=== PATIENT | male | born 1955 | race Caucasian/White ===

== ENCOUNTER 2017-03-04 16:58 | Observation (INO) | payer MEDICARE ==
[~2017-03-04] VITALS: Ht 172.7 cm; Wt 112.7 kg
--- NOTE | ~2017-03-04 | HEMODYNAMI ---
PATIENT:JYOTI DILL MEDICAL RECORD: [id number] : 57 LOCATION:[facility] D.2119 [facility] [id number] ADMISSION DATE: 03/04/17 Generatedon:03/05/201714:17 Patient name: JYOTI DILL Patient #: [id number] : 1955 Date of study: 03/05/2017 Page: Of Hemodynamic Procedure Report Patient Data Patient Demographics Procedure consent was obtained First Name: JYOTI Gender: Male Last Name: ANIYAH : 1955 [facility] Initial: Mateo Age: 61 year(s) Patient #: [id number] Race: SSN: [id number] Additional ID: [id number] Contact details [address]: [address] [place] [address] State: [place] City: [place] Zip code: [address] Past Medical History Allergies Allergen Reaction Date Comments Reported Other allergy 06/11/2016 metoprolol Other allergy 06/12/2016 metoprolol Other allergy 03/05/2017 Motoprolol, Novacaine Admission Admission Data Admission Date: 03/04/2017 Admission Time: 16:58 Room #: D.2119 Lab Results Lab Result Date: 03/05/2017 Lab Result Time: 0:00 Biochemistry Name Units Result Min Max Creatinine mg/dl 1.1 --(--*-)-- 0.6 1.3 CBC Name Units Result Min Max Hemoglobin g/dl 15.2 --(-*--)-- 13.5 17.5 Procedure Procedure Types Cath Procedure Diagnostic Procedure LHC LHC w/Coronaries PCI Procedure Coronary Stent Initial x2 Miscellaneous Procedures Moderate Sedation up to 30 minutes Procedure Description Procedure Date Procedure Date: 03/05/2017 Procedure Start Time: 13:49 Procedure End Time: 14:16 Procedure Staff Name Function Todd Redmond MD Performing Physician Adrianna Ohara RT Scrub Angela Morris RN Nurse Erika Acevedo RT Monitor Domenic Tan RT Meat Stocker Jarrett Negro RT Monitor Procedure Data Cath Procedure Fluoroscopy Diagnostic fluoroscopy Total fluoroscopy Time: 7.4 time: 7.4 min min Diagnostic fluoroscopy Total fluoroscopy dose: 929 dose: 929 mGy mGy Contrast Material Contrast Material Type Amount (ml) Isovue 300 103 Entry Location Entry Primary Successful Side Size Upsize Upsize Entry Closure Sood ccessful Closure Location (Fr) 1 (Fr) 2 (Fr) Remarks Device Remarks Radial Right 6 Fr Mechanical artery Short Compression Estimated blood loss: 10 ml Diagnostic catheters Device Type Used For End Catheter Placement Terumo 5Fr Nolberto 110cm LV Angiography catheter Terumo 5Fr Nolberto 110cm Left Coronary catheter Angiography Terumo 5Fr Nolberto 110cm Right Coronary catheter Angiography Procedure Complications No complications Procedure Medications Medication Administration Route Dosage Oxygen NC 2 l/min Lidocaine 2% added to field 20 Heparin Flush Bag added to field 2 bags (1000units/500ml NS) 0.9% NaCl I.V. 100 ml/hr Versed I.V. 1 mg Fentanyl I.V. 50 mcg Versed I.V. 1 mg Fentanyl I.V. 50 mcg Radial Cocktail I.A. 1 syringe (Verapomil 2mg/Nitro 400mcg/Heparin 1500units) Fentanyl I.V. 50 mcg Heparin Bolus I.V. 4000 units Fentanyl I.V. 50 mcg Hemodynamics Rest HGB: 15.2 (g/dl) Heart Rate: 54 (bpm) Snapshots Pre Cath Intra NCS Post Cath Vital Signs Time Heart Resp SPO2 etCO2 [id number] NIBP (mmHg) Rhythm Pain Sedation Rate (ipm) (%) (mmHg) (mmHg) Status Level (bpm) 13:26:46 54 21 98 0 0 171/94(113) NSR 0 (11) 10(A) , No pain 13:31:02 53 20 99 0 0 158/95(114) NSR 0 (11) 10(A) , No pain 13:35:14 48 19 98 0 0 155/92(104) NSR 0 (11) 10(A) , No pain 13:39:22 54 19 98 0 0 145/95(109) NSR 0 (11) 10(A) , No pain 13:43:34 50 18 98 0 0 148/87(106) NSR 0 (11) 10(A) , No pain 13:47:44 55 17 98 0 0 152/90(114) NSR 0 (11) 9(A) , No pain 13:52:00 64 16 99 0 0 130/81(98) NSR 0 (11) 9(A) , No pain 13:56:10 60 14 95 0 0 138/79(100) NSR 0 (11) 9(A) , No pain 14:00:24 59 16 97 0 0 137/79(106) NSR 0 (11) 9(A) , No pain 14:04:36 62 13 97 0 0 140/81(98) NSR 0 (11) 9(A) , No pain 14:08:48 62 15 98 0 0 132/83(106) NSR 0 (11) 10(A) , No pain 14:12:57 66 16 97 0 0 142/82(118) NSR 0 (11) 10(A) , No pain Medications Time Medication Route Dose Verified Delivered Reason Note s Effectiveness by by 13:31:51 Oxygen NC 2 l/min Todd Buffie used for Nyla Morris RN procedure 13:31:58 Lidocaine 2% added 20ml Todd Buffie used for to vial Nyla Morris RN procedure field 13:32:39 Heparin Flush added 2 bags Todd Brooks used for Bag to Nyla Redmond MD procedure (1000units/500ml field NS) 13:32:49 0.9% NaCl I.V. 100 Todd Buffie Per physician ml/hr Nyla Morris RN 13:44:41 Versed I.V. 1 mg Todd Miller for sedation Nyla Morris RN 13:44:48 Fentanyl I.V. 50 mcg Todd Miller for sedation Nyla Morris RN 13:50:08 Versed I.V. 1 mg Todd Manzanoie for sedation Nyla Morris RN 13:50:12 Fentanyl I.V. 50 mcg Todd Miller for sedation Nyla Morris RN 13:51:49 Radial Cocktail I.A. 1 Todd Brooks for (Verapomil syringe Nyla Redmond MD vasodilation 2mg/Nitro 400mcg/Heparin 1500units) 13:54:14 Fentanyl I.V. 50 mcg Todd Brooks for sedation Nyla Redmond MD 13:55:28 Heparin Bolus I.V. 4000 Todd Miller for veri fied units Tauth MD Morris RN anticoagulation with dr redmond 14:02:28 Fentanyl I.V. 50 mcg Todd Miller for sedation Nyla Morris solar panel installer Log Time Note 13:05:42 Domenic Tan RT(R) sent for patient. Start room use. 13:05:42 Time tracking: Regular hours 13:05:46 Plan of Care:Hemodynamics will remain stable., Cardiac rhythm will remain stable., Comfort level will be maintained., Respiratory function will remain adequate., Patient/ family verbilizes understanding of procedure., Procedure tolerated without complication., Recovers from procedure without complications.. 13:15:50 Patient received from Med II to CCL 1 Alert and oriented. Tansferred to table in Supine position. 13:15:51 Warm blankets applied, and kimberly hugger turned on for patient comfort. 13:15:52 Correct patient and procedure confirmed by team. 13:15:54 Signed procedure consent form obtained from patient. 13:15:55 ECG and BP/O2 sat monitors applied to patient. 13:16:17 Pre-procedure instructions explained to patient. 13:16:18 Pre-op teaching completed and patient verbalized understanding. 13:16:25 Family in patients room. 13:16:27 Patient NPO since Midnight. 13:25:35 Vital chart was stopped 13:25:39 Vital chart was started 13:27:23 Baseline sample Acquired. 13:27:28 Rhythm: sinus bradycardia 13:27:29 Full Disclosure recording started 13:27:35 H&P Date Dictated: 03/05/2017 Within 30 days and on chart.. 13:28:00 Patient allergic to Other allergyMotoprolol, Novacaine 13:28:03 Is the patient allergic to Iodine/contrast media? No. 13:28:40 Is patient on blood thinner?Yes 13:28:43 ACC The patient was administered the following blood thiners within the last 24 hours: ACCAspirin, ACCPlavix 13:29:00 Patient diabetic? No. 13:29:04 Previous problem with sedation/anesthesia? No ? 13:29:06 Snore? Yes 13:29:07 Sleep apnea? No 13:29:08 Deviated septum? No 13:29:09 Opens mouth fully? Yes 13:29:10 Sticks out tongue? Yes 13:29:12 Airway obstruction? No ? 13:29:15 Dentures? No ? 13:29:19 Pre procedure: right dorsailis pedis pulse 2+ Normal; easily identifiable; not easily obliterated 13:29:20 Modified Gavin's test Ulnar < 7 seconds 13:29:23 Patient pain scale 0/10 ?. 13:29:41 IV patent on arrival in left antecubital with 0.9% NaCl at [facility]. 13:30:15 Lab Result : Hemoglobin 15.2 g/dl 13:30:15 Lab Result : Creatinine 1.1 mg/dl 13:30:19 Lab results completed and on chart. 13:30:23 Right Radial & Right Groin area was prepped with chlora-prep and draped in sterile fashion 13:30:24 Alarms reviewed by R. N. 13:30:24 Sharps counted by scrub and verified by R.N. 13:30:28 Use device set Radial Dx 13:30:29 Acist Syringe opened to sterile field. 13:30:29 Medline Cath Pack opened to sterile field. 13:30:30 Bag Decanter opened to sterile field. 13:30:30 Terumo 6Fr Slender Glidesheath opened to sterile field. 13:30:31 St Abner 260cm J .035 wire opened to sterile field. 13:30:31 Acist Hand Control opened to sterile field. 13:30:31 Acist Manifold opened to sterile field. 13:30:32 Tegaderm 4 x 4 opened to sterile field. 13:30:33 MBrace Wrist Support opened to sterile field. 13:31:51 Oxygen 2 l/min NC was administered by Angela Morris RN; used for procedure; 13:31:58 Lidocaine 2% 20ml vial added to field was administered by Angela Morris RN; used for procedure; 13:32:39 Heparin Flush Bag (1000units/500ml NS) 2 bags added to field was administered by Todd Redmond MD; used for procedure; 13:32:49 0.9% NaCl 100 ml/hr I.V. was administered by Angela Morris RN; Per physician; 13:41:15 Final Timeout: patient, procedure, and site verified with staff and physician. All members of the team are in agreement. 13:41:21 Right Radial site verified by team. 13:41:23 Physical assessment completed. ASA score P 2 - A patient with mild systemic disease as per Todd Redmond MD. 13:41:27 Sedation plan: IV Moderate Sedation Versed, Fentanyl 13:44:41 Versed 1 mg I.V. was administered by Angela Morris RN; for sedation; 13:44:48 Fentanyl 50 mcg I.V. was administered by Angela Morris RN; for sedation; 13:49:52 Procedure started. 13:49:56 Local anesthetic to right radial artery with Lidocaine 2% by Todd Redmond MD.INITIAL ACCESS ONLY 13:50:05 A 6 Fr Short sheath was inserted into the Right Radial artery 13:50:08 Versed 1 mg I.V. was administered by Angela Morris RN; for sedation; 13:50:12 Fentanyl 50 mcg I.V. was administered by Angela Morris RN; for sedation; 13:51:47 A Terumo 5Fr Nolberto 110cm catheter was advanced over the wire and used for LV Angiography. 13:51:49 Radial Cocktail (Verapomil 2mg/Nitro 400mcg/Heparin 1500units) 1 syringe I.A. was administered by Todd Redmond MD; for vasodilation; 13:52:25 LV gram done using ESPINOZA 13:52:29 Injector settings: Ml/sec: 5, Volume: 15, 13:52:38 EF : 40 % 13:52:47 A Terumo 5Fr Nolberto 110cm catheter was advanced over the wire and used for Left Coronary Angiography. 13:53:41 A Terumo 5Fr Nolberto 110cm catheter was advanced over the wire and used for Right Coronary Angiography. 13:54:13 Catheter removed. 13:54:14 Fentanyl 50 mcg I.V. was administered by Todd Redmond MD; for sedation; 13:54:42 Cordis 6FR XBLAD 3.5 guide catheter opened to sterile field. 13:55:28 Heparin Bolus 4000 units I.V. was administered by Angela Morris RN; for anticoagulation; verified with dr redmond 13:56:15 6 Fr XBLAD 3.5 guide catheter was inserted over the wire 13:58:22 Whisper wire advanced. 13:59:47 The Promus Premier OTW 3.0 x 8 stent was advanced then removed because of failure to cross lesion 14:00:26 Merit BasixCompak Inflation Kit opened to sterile field. 14:00:44 Tapia Whisper J 300cm 0.014 guide wire opened to sterile field. 14:01:30 Erika Acevedo RT(R) was relieved by Jarrett Negro RT(R) as monitoring person 14:01:38 Inflation number: 1 A Euphora 2.5 x 15 Balloon was prepped and advanced across the Prox CX, then inflated to 17 CLARENCE for 0:10 (min:sec). 14:01:53 Balloon removed over the wire. 14:02:28 Fentanyl 50 mcg I.V. was administered by Angela Morris RN; for sedation; 14:03:16 Inflation Number: 2 A Promus Premier OTW 3.0 x 8 stent was prepped and advanced across the Prox CX. The stent was deployed at 21 CLARENCE for 0:10 (min:sec). 14:03:41 Wire redirected to LAD. 14:03:48 Stent catheter was removed intact over wire. 14:04:20 Wire advanced across lesion. 14:07:47 Inflation Number: 1 A Promus Premier OTW 3.5 x 32 stent was prepped and advanced across the Mid LAD. The stent was deployed at 13 CLARENCE for 0:10 (min:sec). 14:08:36 Stent catheter was removed intact over wire. 14:08:37 Wire removed. 14:08:38 Guide catheter removed. 14:08:58 Terumo TR Band Standard opened to sterile field. 14:10:57 Sheath removed intact; hemostasis achieved with Mechanical Compression to the Right Radial artery. 14:10:59 Procedure ended.(Physican Out) 14:11:38 Fluoroscopy time 07.40 minutes. 14:11:42 Fluoroscopy dose: 929 mGy 14:11:42 Flurop Dose total: 929 14:12:06 Contrast amount:Isovue 300 103ml. 14:12:08 Sharps counted by scrub and verified by R.N. 14:12:11 TR band inflated with 10cc of air. 14:12:13 Insertion/operative site no bleeding no hematoma. 14:12:21 Post right radial artery:stable, soft, clean and dry 14:12:24 Post Procedure Pulses reassessed and unchanged 14:12:27 Post-procedure physical assessment completed. ASA score P 2 - A patient with mild systemic disease as per Todd Redmond MD. 14:12:29 Post procedure rhythm: unchanged. 14:12:32 Estimated blood loss: 10 ml 14:12:33 Post procedure instruction explained to patient.Patient verbalizes understanding. 14:12:33 Patient needs reinforcement of post procedure teaching. 14:13:01 Procedure type changed to Cath procedure, Diagnostic procedure, LHC, LHC w/Coronaries, PCI procedure, Coronary Stent Initial x2, Miscellaneous Procedures, Moderate Sedation up to 30 minutes 14:16:25 Procedure Complication : No complications 14:16:28 See physician's report for complete and final results. 14:16:32 Report given to PCU. 14:16:35 Patient transfered to PCU with Stretcher. 14:16:38 Procedure ended. 14:16:38 Full Disclosure recording stopped 14:16:52 End room use (Document Last) 14:17:19 Vital chart was stopped Intervention Summary Intervention Notes Time ActionType Lesion and Equipment Action# Pressure Duration Attributes Used 13:59:47 Discard Promus Stent Premier OTW 3.0 x 8 stent 14:01:38 Inflate Prox CX Euphora 1 17 00:10 balloon 2.5 x 15 Balloon 14:03:16 Place stent Prox CX Promus 2 21 00:10 Premier OTW 3.0 x 8 stent 14:07:47 Place stent Mid LAD Promus 1 13 00:10 Premier OTW 3.5 x 32 stent Device Usage Item Name Manufacture Quantity Catalog Number Hospital Part Current Mini mal Lot# / Charge Number Stock Stock Serial# Code Acist Acist 1 16769 410903 229288 [id number] 20 Syringe Medical Systems Inc Medline Cardinal 1 [id number] 42866 991309 5 Cath Pack Health Bag Microtek 1 2001S 529073 85229 494331 5 DecGeenapp Inc. Terumo 6Fr Terumo 1 [id number] 860356 923006 868663 [address] Ab[address] St Abner 1 [id number] 648208 280123 917088 30 260cm J .035 wire Acist Hand Acist 1 57789 839695 500449 934340 5 Control Medical Systems Inc Acist Acist 1 17341 441568 755146 499984 5 Manifold Medical Systems Inc Tegaderm 4 3M 1 1626W 931136 846017 194431 5 x 4 MBrace Advanced 1 140-0250-00 750417 07923 037913 5 Wrist Vascular Support Dynamics Terumo 5Fr Terumo 1 40-3613 329748 928227 814810 5 Nolberto 110cm catheter Cordis 6FR Cardinal 1 [id number] 131617 720725 061517 10 XBLAD 3.5 Health guide catheter Promus [place] 1 [id number] 654502 559373 5 [id number] Premier OTW Scientific 3.0 x 8 stent Euphora 2.5 Medtronic 1 [id number] 804091 686082 050395 5 [id number] x 15 Balloon Promus [place] 1 [id number] 854426 921391 5 [id number] Premier OTW Scientific 3.5 x 32 stent Terumo TR Terumo 1 [id number] 730732 686983 748314 40 Band Standard Merit Merit 1 [id number] 231013 226682 423063 15 BasixCompak Medical Inflation Kit Tapia Tapia 1 [id number] 499576 987607 878833 5 Whisper J Vascular 300cm 0.014 guide wire Signature Audit [place] Stage Time Signature Unsigned Intra-Procedure 03/05/2017 Jarrett Negro 2:17:16 PM RT(R) Signatures Monitor : Erika Signature : Counts RT Date : Time : Monitor : Jarrett Negro RT Signature : Date : Time : [facility] [address] [place] [address]
--- NOTE | ~2017-03-04 | OP ---
PATIENT NAME: JYOTI DILL MEDICAL RECORD: [id number] :57 LOCATION:D.M2 D.2119 ADMISSION DATE:03/04/17 SURGEON: DOLLY MARQUIS MD DATE OF OPERATION: 03/05/2017 PROCEDURES: 1. PTCA stent LAD. 2. PTCA stent left circumflex. 3. Left heart catheterization. 4. Selective coronary angiography. 5. Left ventriculogram. PROCEDURE PERFORMED: After informed consent was obtained and after detailed explanation of risks, benefits as well as alternative therapies, the patient elected to proceed with angiogram and angioplasty. The right radial area was prepped and draped in normal sterile fashion. Right radial artery was cannulated via modified Seldinger technique with placement of 6-[place] sheath. All catheters exchanged through the sheath. At the end of the case all catheters were removed. FINDINGS: Left ventriculogram was performed in standard 30-degree ESPINOZA view reveals preserved cardiac wall motion, ejection fraction 50%. SELECTIVE CORONARY ANGIOGRAPHY: 1. Left main showed no significant angiographic disease. 2. Left anterior descending has previously placed stents proximally. These have a 90% in-stent restenosis. 3. Left circumflex has previously placed stents. Obtuse marginal was patent; however, the circumflex itself has 90% in-stent restenosis. 4. The right coronary has previously placed stents. These are widely patent with no significant restenosis. No disease elsewise throughout the RCA or its branches. PTCA STENT OF THE LAD AND CIRCUMFLEX: The LAD was addressed with a 3.5 x 32 mm Promus stent and the left circumflex with a 3.0 x 9 mm Promus stent. Result was 0% residual stenosis. OVERALL IMPRESSION: Successful percutaneous transluminal coronary angioplasty stent of the left anterior descending and circumflex, both going from 90% initial stenosis to 0% residual stenosis. TRANSINT:[id number] Voice Confirmation ID: [id number] DOCUMENT ID: [id number] DOLLY MARQUIS MD CC: [id number] DICTATION DATE: 03/05/17 1414 TELEPHONE ORDER CLERK: 03/05/17 1806 DIS IN 03/05/17 [facility] [address] [place] [id number]
[~2017-03-04 16:58] MED LIST: ASPIRIN325 MG PO; GEMFIBROZIL600 MG PO; NITROSTAT0.4 MG SL; PLAVIX75 MG PO
[2017-03-04 19:06] VITALS: BP 151/86; Ht 172.7 cm; Wt 112.7 kg
[2017-03-04 19:45] LABS: BASOPHILS 0.1 % (0-2); EOSINOPHILS 2.8 % (0-7); HEMOGLOBIN 15.2 g/dL (13.5-17.5); IMMATURE GRANULOCYTES 0.3 % (0-5); LYMPHOCYTES 30.2 % (15-50); MCH 30.6 pg (26.0-34.0); MCHC 35.3 g/dL (31.0-37.0); MCV 86.7 fL (80.0-100.0); MEAN PLATELET VOLUME 10.9 fL (7.4-10.4); MONOCYTES 6.4 % (2-11); NEUTROPHILS 60.2 % (40-80); PLATELET COUNT 165 10x3/uL (130-400); RBC 4.96 10x6/uL (4.20-6.10); RDW 12.8 % (11.5-14.5); WBC 7.9 10x3/uL (4.8-10.8)
[2017-03-04 20:14] LABS: ANION GAP 11.1 mmol/L (8-16); CALCIUM 8.1 mg/dL (8.5-10.1); CARBON DIOXIDE 26.5 mmol/L (21.0-32.0); CREATININE - SERUM 1.1 mg/dL (0.6-1.3); POTASSIUM - SERUM 3.6 mmol/L (3.5-5.1)
--- NOTE | 2017-03-05 00:08 | NUR ---
PT RESTING WELL WITHOUT C/O OR DISTRESS NOTED. NO CHANGES NOTED IN ASSESSMENT. VSS, AFEBRILE. WILL CONT TO MONITOR.
[2017-03-05 04:00] VITALS: BP 139/68
--- NOTE | 2017-03-05 07:30 | NUR ---
RESTING QUIETLY AAOX4 RESP UNLABORED NAD NOTED
[2017-03-05 08:00] VITALS: BP 124/81
[2017-03-05 12:00] VITALS: BP 132/78
[2017-03-05 16:00] VITALS: BP 125/75
--- NOTE | 2017-03-05 18:26 | NUR ---
REVIEWED DISCHARGE INSTRUCTIONS WITH PT AND BOTH STATE UNDERSTANDING COPY GIVEN DCD SALINE LOCK TO LAC WITH IV CATH INTACT SITE FREE OF REDNESS OR EDEMA DISCHARGED HOME LEFT VIA W/C IN STABLE CONDITION WITH ALL PERSONAL BELONGINGS
== END 2017-03-05 18:26 | disposition home or self-care (01) ==
LOC: D.M2 16:58 → OBSVTIME 17:00 → D.M2 03-05 18:26
PROVIDERS: ADMIT Internal Medicine Interventional Cardiology
DX: T82.855A Stenosis of coronary artery stent, initial encounter (principal); Y83.8 Other surgical procedures as the cause of abnormal reaction of the patient, or of later complication, without mention of misadventure at the time of the procedure; I25.10 Atherosclerotic heart disease of native coronary artery without angina pectoris
CPT/HCPCS: 93458; C9600 ×2

== ENCOUNTER 2017-03-23 13:25 | Observation (INO) | payer MEDICARE ==
[2017-03-04 19:06] VITALS: Ht 172.7 cm; Wt 113.4 kg
[~2017-03-23] VITALS: Ht 172.7 cm; Wt 113.4 kg
[2017-03-23] MEDS ORDERED: FISH OIL 1,0001 CA1 PO (19:38)
[2017-03-24 08:52] VITALS: BP 148/81
== END 2017-03-24 16:05 ==
LOC: D.ER 13:25 → D.M2 16:04 → OBSVTIME 16:04 → D.M2 16:04
PROVIDERS: ADMIT Internal Medicine Interventional Cardiology
DX: I21.4 Non-ST elevation (NSTEMI) myocardial infarction (principal); I25.110 Atherosclerotic heart disease of native coronary artery with unstable angina pectoris; Z95.5 Presence of coronary angioplasty implant and graft; I10 Essential (primary) hypertension; E78.5 Hyperlipidemia, unspecified; Z72.0 Tobacco use
CPT/HCPCS: 93458; C9600; C9601

== ENCOUNTER 2018-09-10 12:59 | Observation (INO) | payer MEDICARE ==
[~2018-09-10] VITALS: Ht 172.7 cm; Wt 128.3 kg
--- NOTE | ~2018-09-10 | DS ---
PATIENT:JYOTI MOCK :57 MEDICAL RECORD: [id number] DISCHARGE SUMMARY ADMISSION DATE: 09/10/18 DISCHARGE DATE: 09/12/18 DISCHARGE DATE: 09/12/2018. DISCHARGE DIAGNOSES: 1. Unstable angina. 2. PTCA stent LAD, PTCA left circumflex this admission. 3. Hypertension. 4. Hyperlipidemia. 5. Coronary artery disease. HOSPITAL COURSE: presents with unstable anginal symptomatology, found to have disease of the LAD and circumflex, underwent successful PTCA stent of the LAD and PTCA of the in-stent restenosis of the circumflex, discharged home to continue his current medications as he is already on aspirin and Plavix. Follow up with [facility] in 1 month. TRANSINT:[id number] Voice Confirmation ID: [id number] DOCUMENT ID: [id number] DOLLY MARQUIS MD CC: [id number] DICTATION DATE: 09/12/18 1030 LEG ASSEMBLER: 09/13/18 0143 DIS IN 09/12/18 [place] [id number] [place] [id number]
--- NOTE | ~2018-09-10 | OP ---
PATIENT NAME: JYOTI DILL MEDICAL RECORD: [id number] :57 [facility]ATION[facility] ADMISSION DATE:09/10/18 SURGEON: DOLLY MARQUIS MD DATE OF OPERATION: 09/12/2018 PROCEDURES: 1. PTCA stent LAD. 2. PTCA left circumflex. 3. Left heart catheterization. 4. Selective coronary angiography. 5. Left ventriculogram. INDICATION: Unstable angina and coronary artery disease. PROCEDURE IN DETAIL: After informed consent was obtained and after a detailed description of the risks, benefits as well as alternative therapies, the patient elected to proceed with angiogram and angioplasty. The right radial area was prepped and draped in normal sterile fashion. Right radial artery was cannulated via modified Seldinger technique with placement of 6-[place] sheath. All catheters exchanged through this sheath. FINDINGS: The left ventriculogram was performed in standard 30-degree ESPINOZA view reveals preserved cardiac wall motion, ejection fraction 50%. SELECTIVE CORONARY ANGIOGRAPHY: 1. Left main is with no significant angiographic disease. 2. Left anterior descending has previously placed stents proximally, these are widely patent with no significant restenosis. There is a 75% stenosis in the mid vessel. 3. Left circumflex has previously placed stents. There is 90% in-stent restenosis. 4. Right coronary artery has moderate irregularities, but no flow-limiting stenosis. Previously placed stents in the right coronary artery are widely patent. PTCA STENT OF THE LEFT ANTERIOR DESCENDING: The stent used 2.5 x 15 mm [place]. Result was 0% residual stenosis. The in-stent restenosis of the circumflex was addressed with a 3.5 balloon taken to 19 atmospheres. Result was 0% residual stenosis. OVERALL IMPRESSION: Successful percutaneous transluminal coronary angioplasty stent of the left anterior descending and high pressure percutaneous transluminal coronary angioplasty of the left circumflex, both going from 75% to 90% initial stenosis to 0% residual. TRANSINT:[id number] Voice Confirmation ID: [id number] DOCUMENT ID: [id number] OPERATIVE REPORT [id number] JYOTI DILL JEFFREY MD CC: [id number] DICTATION DATE: 09/12/18 1032 CADMIUM PLATER: 09/12/18 1145 ADM IN [address] [address] [id number] [place] [address]
--- NOTE | ~2018-09-10 | HEMODYNAMI ---
PATIENT:JYOTI DILL MEDICAL RECORD: [id number] : 57 LOCATION:[facility] D.2119 ADMISSION DATE: 09/10/18 Generatedon:09/12/201810:35 Patient name: JYOTI DILL Patient #: [id number] : 1955 Date of study: 09/12/2018 Page: Of Hemodynamic Procedure Report Patient Data Patient Demographics Procedure consent was obtained First Name: JYOTI Gender: Male Last Name: ANIYAH : 1955 [facility] Initial: Mateo Age: 63 year(s) Patient #: [id number] Race: SSN: [id number] Additional ID: [id number] Contact details [address]: [address] [place] [address] State: [place] City: [place] Zip code: [address] Past Medical History Allergies Allergen Reaction Date Comments Reported Other 06/11/2016 metoprolol allergy Other 06/12/2016 metoprolol allergy Other 03/05/2017 Motoprolol, Novacaine allergy Other 03/24/2017 metoprolol, Procaine, allergy Novacaine Other 09/12/2018 Novacaine,metoprolol,procaine allergy Admission Admission Data Admission Date: 09/10/2018 Admission Time: 14:52 Room #: D.2119 Lab Results Lab Result Date: 09/12/2018 Lab Result Time: 0:00 Biochemistry Name Units Result Min Max BUN mg/dl 12 --(-*--)-- 7 18 Creatinine mg/dl 1.1 --(--*-)-- 0.6 1.3 Procedure Procedure Types Cath Procedure Diagnostic Procedure [facility] w/Coronaries Sedation Charges Moderate Sedation up to 30 minutes PCI Procedure Coronary Stent Coronary Stent Initial PTCA PTCA Initial Procedure Description Procedure Date Procedure Date: 09/12/2018 Procedure Start Time: 10:07 Procedure End Time: 10:33 Procedure Staff Name Function Todd Redmond MD Performing Physician Jarrett Negro RT Monitor Angela Morris RN Nurse Erika Acevedo RT Scrub Procedure Data Cath Procedure Fluoroscopy Diagnostic fluoroscopy Total fluoroscopy Time: 9.6 time: 9.6 min min Diagnostic fluoroscopy Total fluoroscopy dose: dose: 1699 mGy 1699 mGy Contrast Material Contrast Material Type Amount (ml) Isovue 300 123 Entry Location Entry Primary Successful Side Size Upsize Upsize Entry Closure Sood ccessful Closure Location (Fr) 1 (Fr) 2 (Fr) Remarks Device Remarks Radial Right 6 Fr Mechanical artery Short Compression Estimated blood loss: 10 ml Diagnostic catheters Device Type Used For End Catheter Placement DIAGNOSTIC [place] 110cm 5 Procedure Fr catheter ([id number]) Procedure Complications No complications Procedure Medications Medication Administration Route Dosage Oxygen etCO2 Nasal cannula 2 l/min Lidocaine 2% added to field 20 Heparin Flush Bag added to field 2 bags (1000units/500ml NS) 0.9% NaCl I.V. 100 ml/hr Radial Cocktail I.A. 1 syringe (Verapomil 2mg/Nitro 400mcg/Heparin 1500units) Versed I.V. 1 mg Fentanyl I.V. 50 mcg Versed I.V. 1 mg Fentanyl I.V. 50 mcg Fentanyl I.V. 50 mcg Heparin Bolus I.V. 4000 units Fentanyl I.V. 50 mcg Versed I.V. 1 mg Hemodynamics Rest Heart Rate: 56 (bpm) Pressure Samples Time Site Value (mmHg) Purpose Heart Use Rate(bpm) 10:09 LV 281/64,38 Snapshot 67 Snapshots Pre Cath Intra NCS Post Cath Vital Signs Time Heart Resp SPO2 etCO2 NIBP (mmHg) Rhythm Pain Sedation Rate (ipm) (%) (mmHg) Status Level (bpm) 9:50:57 57 18 96 0 167/97(116) NSR 0 (11) 10(A) , No pain 9:55:11 55 32 98 20.4 159/93(127) NSR 0 (11) 10(A) , No pain 9:59:21 55 19 96 21.1 149/102(120) NSR 0 (11) 10(A) , No pain 10:03:29 61 16 97 21.9 150/98(118) NSR 0 (11) 10(A) , No pain 10:07:37 60 14 96 36.2 141/93(118) NSR 0 (11) 9(A) , No pain 10:11:40 71 14 94 24.2 159/95(122) NSR 0 (11) 9(A) , No pain 10:15:54 68 12 95 26.5 145/87(116) NSR 0 (11) 9(A) , No pain 10:20:02 62 12 95 37.1 145/86(118) NSR 0 (11) 9(A) , No pain 10:24:10 68 13 95 37.8 142/92(120) NSR 0 (11) 9(A) , No pain 10:28:14 68 13 95 37.8 158/99(120) NSR 0 (11) 10(A) , No pain 10:32:26 61 15 95 34.8 144/88(115) NSR 0 (11) 9(A) , No pain Medications Time Medication Route Dose Verified Delivered Reason Not es Effectiveness by by 9:55:13 Oxygen etCO2 2 l/min Todd Miller used for Nasal Nyla Morris RN procedure cannula 9:55:20 Lidocaine 2% added 20ml Todd Brooks for local pt get to vial Nyla Redmond MD anesthetic nauseated field when used with dental procedures only 9:55:25 Heparin Flush added 2 bags Todd Brooks used for Bag to Nyla Redmond MD procedure (1000units/500ml field NS) 9:55:32 0.9% NaCl I.V. 100 Todd Miller Per physician ml/hr Nyla Morris RN 9:55:40 Radial Cocktail I.A. 1 Todd Brooks for (Verapomil syringe Nyla Redmond MD vasodilation 2mg/Nitro 400mcg/Heparin 1500units) 10:00:18 Versed I.V. 1 mg Todd Buffie for sedation Nyla Morris RN 10:00:25 Fentanyl I.V. 50 mcg Todd Buffie for sedation Nyla Morris RN 10:04:04 Versed I.V. 1 mg Todd Buffie for sedation Nyla Morris RN 10:04:08 Fentanyl I.V. 50 mcg Todd Buffie for sedation Nyla Morris RN 10:08:08 Fentanyl I.V. 50 mcg Todd Buffie for sedation Nyla Morris RN 10:13:48 Heparin Bolus I.V. 4000 Todd Buffie for yovani ified units Nyla Morris RN anticoagulation with dr redmond 10:22:16 Fentanyl I.V. 50 mcg Todd Miller for sedation Nyla Morris RN 10:23:25 Versed I.V. 1 mg Todd Miller for sedation Nyla Morris RN Procedure Log Time Note 9:38:51 Diagnostic Cath status Elective 9:38:52 Angela Morris RN sent for patient. Start room use. 9:39:05 Time tracking: Regular hours (M-F 7:00 - 5:00) 9:39:09 Plan of Care:Hemodynamics will remain stable., Cardiac rhythm will remain stable., Comfort level will be maintained., Respiratory function will remain adequate., Patient/ family verbilizes understanding of procedure., Procedure tolerated without complication., Recovers from procedure without complications.. 9:39:25 H&P Date Dictated: 09/10/2018 Within 30 days and on chart.. 9:42:27 Lab Result : Creatinine 1.1 mg/dl 9:42:27 Lab Result : BUN 12 mg/dl 9:42:36 Patient received from Med II to CCL 1 Alert and oriented. Tansferred to table in Supine position. 9:42:37 Warm blankets applied, and kimberly hugger turned on for patient comfort. 9:42:37 Correct patient and procedure confirmed by team. 9:42:39 Signed procedure consent form obtained from patient. 9:42:40 ECG and BP/O2 sat monitors applied to patient. 9:42:41 Pre-procedure instructions explained to patient. 9:42:42 Pre-op teaching completed and patient verbalized understanding. 9:42:43 Family in waiting room. 9:42:44 Patient NPO since Midnight. 9:43:45 Patient allergic to Other allergyNovacaine,metoprolol,procaine 9:49:54 Vital chart was started 9:55:13 Oxygen 2 l/min etCO2 Nasal cannula was administered by Angela Morris RN; used for procedure; 9:55:20 Lidocaine 2% 20ml vial added to field was administered by Todd Redmond MD; for local anesthetic; pt get nauseated when used with dental procedures only 9:55:25 Heparin Flush Bag (1000units/500ml NS) 2 bags added to field was administered by Todd Redmond MD; used for procedure; 9:55:32 0.9% NaCl 100 ml/hr I.V. was administered by Angela Morris RN; Per physician; 9:55:40 Radial Cocktail (Verapomil 2mg/Nitro 400mcg/Heparin 1500units) 1 syringe I.A. was administered by Todd Redmond MD; for vasodilation; 9:56:17 Baseline sample Acquired. 9:56:21 Rhythm: sinus rhythm 9:56:23 Full Disclosure recording started 9:56:25 Is the patient allergic to Iodine/contrast media? No. 9:56:26 Is patient on blood thinner?Yes 9:56:28 ACC The patient was administered the following blood thiners within the last 24 hours: ACCPlavix 9:56:29 Patient diabetic? No. 9:56:31 Previous problem with sedation/anesthesia? No ? 9:56:33 Snore? Yes 9:56:33 Sleep apnea? No 9:56:34 Deviated septum? No 9:56:35 Opens mouth fully? Yes 9:56:36 Sticks out tongue? Yes 9:56:37 Airway obstruction? No ? 9:56:39 Dentures? No ? 9:56:42 Pre procedure: right posterior tibial pulse 2+ Normal; easily identifiable; not easily obliterated 9:56:44 Patient pain scale 0/10 ?. 9:56:45 Modified Gavin's test Ulnar < 7 seconds 9:56:50 IV patent on arrival in left forearm with 0.9% NaCl at KVO. 9:56:54 Lab results completed and on chart. 9:56:56 Right Radial & Right Groin area was prepped with chlora-prep and draped in sterile fashion 9:56:57 Alarms reviewed by R. N. 9:56:58 Sharps counted by scrub and verified by R.N. 9:57:06 Use device set Radial Dx or PCI 9:57:07 ACIST Syringe (54618) opened to sterile field. 9:57:08 Medline Cath Pack ([id number]) opened to sterile field. 9:57:08 Bag Decanter () opened to sterile field. 9:57:09 ACIST Manifold (23792) opened to sterile field. 9:57:09 ACIST Hand Control (46871) opened to sterile field. 9:57:10 Tegaderm 4 x 4 (1626W) opened to sterile field. 9:57:10 MBrace Wrist Support ([id number]) opened to sterile field. 9:57:11 SHEATH 6FR Slender (12-3754) opened to sterile field. 9:57:12 DIAGNOSTIC WIRE .035 260cm J wire (676501) opened to sterile field. 9:57:17 Physician arrived 9:57:18 --------ALL STOP TIME OUT------ 9:57:19 Final Timeout: patient, procedure, and site verified with staff and physician. All members of the team are in agreement. 9:57:20 Right Radial & Right Groin site verified by team. 9:57:24 Maximum allowable Isovue 300 dose 300ml. Physician notified. (300ml for normal creatinines. For patients with creatinine of 1.7 or higher multiply weight(kg) x 5 divided by creatinine.) 9:57:29 Fire Safety Assessment: A--An alcohol-based skin anteseptic being used preoperatively., C--Open oxygen or nitrous oxide is being used., D--An ESU, laser, or fiber-optic light is being used., E--There are other possible contributors. 9:57:31 Physical assessment completed. ASA score P 2 - A patient with mild systemic disease as per Todd Redmond MD. 9:57:33 Sedation plan: IV Moderate Sedation Medication:Versed, Fentanyl 9:57:51 IV Extension Set opened to sterile field. 10:00:18 Versed 1 mg I.V. was administered by Angela Morris RN; for sedation; 10:00:25 Fentanyl 50 mcg I.V. was administered by Angela Morris RN; for sedation; 10:03:12 Zero performed for pressure channel P1 10:04:04 Versed 1 mg I.V. was administered by Angela Morris RN; for sedation; 10:04:08 Fentanyl 50 mcg I.V. was administered by Angela Morris RN; for sedation; 10:07:41 Procedure started. 10:07:47 Local anesthetic to right radial artery with Lidocaine 2% by Todd Redmond MD.INITIAL ACCESS ONLY 10:07:55 A 6 Fr Short sheath was inserted into the Right Radial artery 10:08:08 Fentanyl 50 mcg I.V. was administered by Angela Morris RN; for sedation; 10:08:39 A DIAGNOSTIC [place] 110cm 5 Fr catheter ([id number]) was advanced over the wire and used for Procedure. 10:09:25 LV gram done using ESPINOZA 10::28 Injector settings: Ml/sec: 5, Volume: 15, 10:09:33 LV hemodynamics recorded. 10:09:45 EF : 50 % 10:09:53 LCA angiography performed. 10:10:28 CHOICE PT Extra Support 182cm wire ([id number]) opened to sterile field. 10:10:29 INFLATOR Merit BasixCompak (VU3024) opened to sterile field. 10:11:01 RCA angiography performed. 10:12:19 Catheter exchanged over wire. 10:12:26 GUIDE 6FR XBLAD 3.5 catheter ([id number]) opened to sterile field. 10:12:34 6 Fr xblad 3.5 guide catheter was inserted over the wire 10:13:48 Heparin Bolus 4000 units I.V. was administered by Angela Morris RN; for anticoagulation; verified with dr redmond 10:16:27 Guide Catheter removed. unable to cannulate vessel. 10:16:38 GUIDE 6FR EBU 3.0 catheter (XH1PDO17) opened to sterile field. 10:16:46 6 Fr ebu 3.0 guide catheter was inserted over the wire 10:16:52 choice pt es wire advanced. 10:16:59 Wire advanced across lesion. 10:18:33 Inflate balloon Inflation number: 1 A EUPHORA 3.5 x 15 Balloon ([id number]) was prepped and advanced across the Mid CX, then inflated to 7 CLARENCE for 0:10 (min:sec). 10:18:47 Inflation number: 2 The EUPHORA 3.5 x 15 Balloon ([id number]) was reinflated across the Mid CX, to 15 CLARENCE for 0:10 (min:sec). 10:19:11 Inflation number: 3 The EUPHORA 3.5 x 15 Balloon ([id number]) was reinflated across the Mid CX, to 15 CLARENCE for 0:10 (min:sec). 10:19:36 Inflation number: 4 The EUPHORA 3.5 x 15 Balloon ([id number]) was reinflated across the Mid CX, to 19 CLARENCE for 0:10 (min:sec). 10:20:16 Balloon removed over the wire. 10::28 Wire redirected to LAD. 10:22:16 Fentanyl 50 mcg I.V. was administered by Angela Morris RN; for sedation; 10::25 Versed 1 mg I.V. was administered by Angela Morris RN; for sedation; 10:25:09 Wire removed. 10:25:13 Guide Catheter removed. unable to cannulate vessel. 10:25:23 6 Fr XBLAD 3.5 guide catheter was inserted over the wire 10:27:04 CHOICE PT ES wire advanced. 10:27:07 Wire advanced across lesion. 10:27:30 Place stent Inflation Number: 1 A ABBY RX 2.5 x 15 stent ([id number]) was prepped and advanced across the Prox LAD. The stent was deployed at 15 CLARENCE for 0:10 (min:sec). 10:27:53 Stent catheter was removed intact over wire. 10::55 Wire removed. 10::55 Guide catheter removed. 10:27:58 TR BAND Large ([id number]) opened to sterile field. 10:28:22 Sheath removed intact; hemostasis achieved with Mechanical Compression to the Right Radial artery. 10:29:29 Procedure ended.(Physican Out) 10:30:15 Fluoroscopy time 09.60 minutes. 10:30:22 Flurop Dose total: 1699 10:30:22 Fluoroscopy dose: 1699 mGy 10:30:26 Contrast amount:Isovue 300 123ml. 10:31:08 Sharps counted by scrub and verified by R.N. 10:31:26 TR band inflated with 12cc of air. 10:31:28 Insertion/operative site no bleeding no hematoma. 10:31:33 Post right radial artery:stable, soft, clean and dry 10:31:37 Post-procedure physical assessment completed. ASA score P 2 - A patient with mild systemic disease as per Todd Redmond MD. 10:31:40 Post procedure rhythm: unchanged. 10:31:45 Estimated blood loss: 10 ml 10:31:47 Post procedure instruction explained to patient.Patient verbalizes understanding. 10:31:48 Patient needs reinforcement of post procedure teaching. 10:32:11 Procedure type changed to Cath procedure, Diagnostic procedure, LHC, C w/Coronaries, Sedation Charges, Moderate Sedation up to 30 minutes, PCI procedure, Coronary Stent, Coronary Stent Initial, PTCA, PTCA Initial 10:32:56 Procedure and supply charges have been captured, reviewed, submitted and are correct. 10:32:58 Procedure Complication : No complications 10:33:00 Vital chart was stopped 10:33:01 See physician's report for complete and final results. 10:33:05 Report given to Pre/Post Procedure Room. 10:33:07 Patient transfered to Pre/Post Procedure Room with Stretcher. 10:33:09 Procedure ended. 10:33:09 Full Disclosure recording stopped 10:33:13 End room use (Document Last) Intervention Summary Intervention Notes Time ActionType Lesion and Equipment Used Action# Pressure Duration Attributes 10:18:33 Inflate Mid CX EUPHORA 3.5 x 1 7 00:10 balloon 15 Balloon ([id number]) 10:18:47 Reinflate Mid CX EUPHORA 3.5 x 2 15 00:10 balloon 15 Balloon ([id number]) 10:19:11 Reinflate Mid CX EUPHORA 3.5 x 3 15 00:10 balloon 15 Balloon ([id number]) 10:19:36 Reinflate Mid CX EUPHORA 3.5 x 4 19 00:10 balloon 15 Balloon ([id number]) 10:27:30 Place stent Prox LAD ABBY RX 2.5 x 1 15 00:10 15 stent ([id number]) Device Usage Item Name Manufacture Quantity Catalog Number Hospital Part Current M inimal Lot# / Charge Number Stock Stock Serial# Code ACIST Syringe Acist 1 99080 774495 717064 975593 2 0 (95718) Medical Systems Inc Medline Cath Medline 1 [id number] 756008 98109 233372 5 Pack ([id number]) Bag Decanter Microtek 1 2001S 940077 59411 505856 5 (2001S) Medical Inc. ACIST Manifold Acist 1 13627 448886 207050 538428 5 (88977) Medical Systems Inc ACIST Hand Acist 1 53771 938972 958746 125243 5 Control Medical (82505) Systems Inc Tegaderm 4 x 4 3M 1 1626W 809492 609067 153730 5 (1626W) MBrace Wrist Advanced 1 140-0250-00 204690 78724 985637 5 Support Vascular ([id number]) Dynamics SHEATH 6FR Terumo 1 [id number] 640125 747805 889706 5 Slender (80-1060) DIAGNOSTIC [place] 1 781704 918647 018185 554599 3 0 WIRE .035 260cm J wire (981437) IV Extension Hospira 1 94893-05 175850 50279 828082 5 Set DIAGNOSTIC Terumo 1 40-5013 373101 976116 061513 5 [place] 110cm 5 Fr catheter (750278) CHOICE PT [place] 1 [id number] 256712 245296 398633 5 Extra Support Scientific 182cm wire ([id number]) INFLATOR Merit Merit 1 DB0999 317493 133367 762708 1 5 TapulouswiSTEERads Medical (YC9046) GUIDE 6FR Cardinal 1 52522309 597966 970439 460170 1 0 XBLAD 3.5 Health catheter (55740822) GUIDE 6FR EBU Medtronic 1 [id number] 822776 77622 283310 0 3.0 catheter ([id number]) EUPHORA 3.5 x Medtronic 1 [id number] 971390 473371 891466 5 [id number] 15 Balloon (IMS1546O) ABBY RX 2.5 x Medtronic 1 [id number] 873512 4964615 347681 5 [id number] 15 stent ([id number]) TR BAND Large Terumo 1 [id number] 205065 183918 547442 4 0 ([id number]) Signature Audit [place] Stage Time Signature Unsigned Intra-Procedure 09/12/2018 Jarrett Negro 10:35:06 AM RT(R) Signatures Monitor : Jarrett Negro RT Signature : Date : Time : [facility] [address] [place] [address]
[~2018-09-10 12:59] MED LIST changes: +FISH OIL 1,0001 CA1 PO
[2018-09-10 13:37] LABS: ANION GAP 16.4 mmol/L (8-16); CALCIUM 8.6 mg/dL (8.5-10.1); CARBON DIOXIDE 22.6 mmol/L (21.0-32.0); CREATININE - SERUM 1.1 mg/dL (0.6-1.3)
--- NOTE | 2018-09-10 15:17 | NUR ---
RECEIVED PT FROM ER VIA W/C DENIES ANY CHEST PAIN AT THIS TIME RESP UNALOBORED SKIN W/D COLOR WNL LAC SALINE LOCK INTACT SITE FREE OF REDNESS OR EDEMA
[2018-09-10 15:30] VITALS: BP 134/80
[2018-09-10 15:36] VITALS: BP 125/68; Ht 172.7 cm; Wt 128.3 kg
[2018-09-10 20:00] VITALS: BP 131/79
--- NOTE | 2018-09-10 20:07 | NUR ---
INITIAL ROUNDS AND ASSESSMENT COMPLETED. PT ALERT/ORIENTED. LAYING IN BED. SR PER TELEMETRY. NONLABORED RESPIRATIONS ON ROOM AIR. C/O HEADACHE, REMOVED NITRO PASTE THAT WAS STILL IN PLACE. PT REQUESTING AN ASPIRIN. WILL PROVIDE. MONITOR AND CPOC.
--- NOTE | 2018-09-10 21:12 | NUR ---
BEDTIME MED GIVEN. PT REQUESTED AND WAS GIVEN A SANDWICH TRAY WITH JUICE TO DRINK. WILL BE NPO AFTER MIDNIGHT UNTIL SEEN BY RESTAURANT LINE SERVER IN AM. PT CURRENTLY SITTING UP IN BEDSIDE CHAIR EATING SANDWICH TRAY.
[2018-09-11] VITALS: BP 150/54
[2018-09-11 04:00] VITALS: BP 136/74
--- NOTE | 2018-09-11 07:20 | NUR ---
ALERT AND ORIENTED. TELEMETRY SHOWS SB AT 53. O2 AT 2 L/M PER NC. SL TO LEFT AC.DENIES ANY NEEDS. WILL MONITOR
[2018-09-11 08:51] VITALS: BP 148/84
--- NOTE | 2018-09-11 10:36 | NUR ---
AGREE WITH HEAD STILL OPERATOR ASSESSMENT
[2018-09-11 14:43] VITALS: BP 139/82
--- NOTE | 2018-09-11 17:16 | NUR ---
NO DISCOMFORT VOICED. UP IN BEDSIDE CHARE FOR DIET. WILL MONITOR
--- NOTE | 2018-09-11 21:47 | NUR ---
INITIAL ROUNDS COMPLETED AT 1909 HRS. PT SITTING IN THE RECLINER; DENIES ANY DISCOMFORT. ASSESSMENT COMPLETED AT 2054 HRS. VSS. SB PER CM HR 58. IV TO LAC SL. LUNGS CTA. ABD SOFT WITH ACTIVE BS NOTED. ADAIR. SEVERAL SCABS NOTED TO RFA. PM MEDS GIVEN. PT CURRENTLY WATCHING TV. SR UP X2, CALL LIGHT WITHIN REACH.
[2018-09-11 21:53] VITALS: BP 134/62
--- NOTE | 2018-09-12 00:24 | NUR ---
PT RESTING WITH EYES CLOSED. RESP EVEN AND REGULAR. SR UP X2, CALL LIGHT WITHIN REACH.
--- NOTE | 2018-09-12 02:20 | NUR ---
PT RESTING WITH EYES CLOSED. RESP EVEN AND REGULAR. SR UP X2, CALL LIGHT WITHIN REACH.
--- NOTE | 2018-09-12 04:24 | NUR ---
PT STATED WILL SHOWER ON DAY SHIFT. DENIES ANY DISCOMFORT. CALL LIGHT WITHIN REACH.
[2018-09-12 04:53] VITALS: BP 117/60
--- NOTE | 2018-09-12 06:36 | NUR ---
VSS THROUGHOUT NIGHT. PT DENIED ANY DISCOMFORT. NPO FOR LHC LATER TODAY. NEEDS MET; WILL CONTINUE TO MONITOR.
[2018-09-12 08:50] VITALS: BP 139/96
--- NOTE | 2018-09-12 09:38 | NUR ---
PRE-OPS GIVEN. TO STRAIGHT CUTTER MACHINE BY BED.
--- NOTE | 2018-09-12 10:33 | HP ---
PATIENT: JYOTI DILL MEDICAL RECORD: [id number] ACCOUNT: [id number] LOCATION:[facility] D.2119 : 57 ADMISSION DATE: 09/10/18 PCP: DOLLY MARQUIS MD HISTORY AND PHYSICAL EXAMINATION DIAGNOSES: 1. Chest pain. 2. Diaphoresis. 3. Shortness of breath. 4. History of multiple pulmonary emboli. 5. History of multivessel PTCA and stent. 6. Increased troponin. 7. Hypertension. HISTORY: This is a gentleman who has cardiac history as well as pulmonary history. He has history of coronary artery disease. Last cardiac stent in 2017. He has history of multiple pulmonary emboli. At this time, he is not on anticoagulation. He is only on Plavix and aspirin. He today had an episode with very little chest pain. Even though he has been having chest pain over the past few weeks, he was more diaphoretic and had shortness of breath today. He presented to [facility]. His troponin was elevated, but D-dimer was not undertaken. PHYSICAL EXAMINATION: GENERAL APPEARANCE: Well-nourished, well-developed, appears stated age. Level of distress, comfortable. PSYCHIATRIC: Mental status, alert, normal affect. Orientation, oriented to time, place and person. EYES: Lids and conjunctiva, noninjected. No discharge, no pallor. ENT: Lips, teeth, gums, normal dentition. Oropharynx, no cyanosis, no pallor. NECK: Carotid arteries, bilateral normal upstroke, no bruits, no thrills. JUGULAR VEINS: No jugular venous pressure or distention. CERVICAL LYMPH NODES: Nontender, nonenlarged. THYROID: Not enlarged. Nontender. No nodules. LUNGS: Respiratory effort, unlabored. CHEST: Normal curvature. No thoracic deformity. No chest wall tenderness. Percussion, resonant. Auscultation, clear. No wheezes, no rales, no rhonchi. CARDIOVASCULAR: Precordial exam, nondisplaced. No heaves or pericardial thrills. Rate and rhythm, regular. Heart sounds, normal S1, normal S2. No S3, no gallop, no rub. Systolic murmur, not heard. Diastolic murmur, not heard. EXTREMITIES: No cyanosis, no edema. Peripheral pulses, full and equal in all extremities, except as noted. No bruits appreciated. ABDOMEN: Soft, nondistended. Normal aorta. No bruit. Nontender. No masses. Liver, nontender, no hepatomegaly. Spleen, nontender, no splenomegaly. MUSCULOSKELETAL: No joint tenderness. No joint swelling. No erythema. NEUROLOGICAL: Normal gait, normal strength, normal tone. SKIN: Warm and dry. OVERALL IMPRESSION: Episode of diaphoresis and shortness of breath with increased troponin. We will rule out pulmonary embolus first with CT angio. If that is not the case, I would pursue cardiac etiology of this. TRANSINT:[id number] Voice Confirmation ID: [id number] DOCUMENT ID: [id number] HISTORY AND PHYSICAL [id number] JYOTI DILL JEFFREY MD at 1033 CC: [id number] DICTATION DATE: 09/10/18 1315 TURNER SPLITTER MACHINE OPERATOR: 09/10/18 1428 ADM IN [facility] [address] [id number]
--- NOTE | 2018-09-12 11:00 | NUR ---
PT RESTING COMFORTABLY. VSS. RIGHT RADIAL TR BAND IN PLACE. NO BLEEDING/HEMATOMA. CALL LIGHT WITHIN REACH. FAMILY AT BEDSIDE. DENIES PAIN.
--- NOTE | 2018-09-12 11:30 | NUR ---
RIGHT RADIAL TR BAND IN PLACE. NO BLEEDING/HEMATOMA NOTED. VSS. RESTING COMFORTABLY AT THIS TIME.
--- NOTE | 2018-09-12 12:05 | NUR ---
DR. MARQUIS ROUNDED AND SPOKE WITH PT AND PT'S FAMILY. RIGHT RADIAL TR BAND IN PLACE. NO BLEEDING/HEMATOMA NOTED.
--- NOTE | 2018-09-12 12:35 | NUR ---
RIGHT RADIAL TR BAND IN PLACE. NO BLEEDING/HEMATOMA NOTED. PT RESTING COMFORTABLY. DENIES PAIN. RIGHT HAND WARM TO TOUCH WITH CAP REFILL < 3 SECS. PT'S FAMILY AT BEDSIDE.
--- NOTE | 2018-09-12 13:09 | NUR ---
PT MORE ALERT. HEAD OF BED INC TO 40 DEGREES AND PT SET UP WITH SANDWICH TRAY. DENIES NAUSEA. RIGHT RADIAL TR BAND IN PLACE. NO BLEEDING/HEMATOMA NOTED.
--- NOTE | 2018-09-12 13:30 | NUR ---
3cc OF AIR REMOVED FROM TR BAND. PT TOLERATED WELL. NO BLEEDING/HEMATOMA NOTED. VSS.
--- NOTE | 2018-09-12 13:46 | NUR ---
3cc OF AIR REMOVED FROM TR BAND. PT TOLERATED WELL. VSS. DENIES NAUSEA. NO BLEEDING/HEMATOMA TO RIGHT WRIST TR BAND SITE.
--- NOTE | 2018-09-12 14:00 | NUR ---
3cc OF AIR REMOVED FROM TR BAND. NO BLEEDING/HEMATOMA NOTED.
--- NOTE | 2018-09-12 14:14 | NUR ---
LEFT AC PIV D/C'D WITH CATH TIP INTACT. PT TOLERATED WELL. PT INSTRUCTED TO GET UP AND GET DRESSED.
--- NOTE | 2018-09-12 14:25 | NUR ---
PT DRESSED. DISCUSSED DISCHARGE INSTRUCTIONS WITH PT AND PT'S . THEY VOICED UNDERSTANDING. TR BAND REMOVED AND DRESSING APPLIED. RIGHT WRIST BRACE IN PLACE AND PT INSTRUCTED TO REMOVE AFTER 2 HOURS. NO BLEEDING/HEMATOMA NOTED.
--- NOTE | 2018-09-12 14:30 | NUR ---
PT TAKEN OUT TO VEHICLE BY WHEELCHAIR. NO S/S OF DISTRESS NOTED. ALL BELONGINGS AND PAPERWORK IN HAND.
== END 2018-09-12 14:30 | disposition home or self-care (01) ==
LOC: D.ER 12:59 → D.M2 14:52 → OBSVTIME 14:52 → D.M2 14:52 → D.CLR 09-12 10:45
PROVIDERS: Family Medicine; ADMIT Internal Medicine Interventional Cardiology; ATTEND Internal Medicine Interventional Cardiology
DX: I25.110 Atherosclerotic heart disease of native coronary artery with unstable angina pectoris (principal); I10 Essential (primary) hypertension; E78.5 Hyperlipidemia, unspecified; R61 Generalized hyperhidrosis
CPT/HCPCS: 92920; 93458; C9600

== ENCOUNTER 2018-12-02 16:56 | Inpatient (IN) | payer MEDICARE | END 2018-12-05 16:41 | disposition home or self-care (01) | DRG 249 | LOC: D.M2 16:56 | PROVIDERS: ADMIT Internal Medicine Interventional Cardiology | PROC: 02703DZ Dilation of Coronary Artery, One Artery with Intraluminal Device, Percutaneous Approach (ICD-10-PCS; principal; 2018-12-05) | PROC: 02713ZZ Dilation of Coronary Artery, Two Arteries, Percutaneous Approach (ICD-10-PCS; 2018-12-05) | PROC: 4A023N7 Measurement of Cardiac Sampling and Pressure, Left Heart, Percutaneous Approach (ICD-10-PCS; 2018-12-05) | PROC: B2111ZZ Fluoroscopy of Multiple Coronary Arteries using Low Osmolar Contrast (ICD-10-PCS; 2018-12-05) | PROC: B2151ZZ Fluoroscopy of Left Heart using Low Osmolar Contrast (ICD-10-PCS; 2018-12-05) | DX: I21.4 Non-ST elevation (NSTEMI) myocardial infarction (principal); T82.855A Stenosis of coronary artery stent, initial encounter; I25.119 Atherosclerotic heart disease of native coronary artery with unspecified angina pectoris; Y83.9 Surgical procedure, unspecified as the cause of abnormal reaction of the patient, or of later complication, without mention of misadventure at the time of the procedure; I10 Essential (primary) hypertension; E78.5 Hyperlipidemia, unspecified ==